=== PATIENT | female | born 1965 | race Caucasian/White ===

== ENCOUNTER → 2017-08-09 | Outpatient (CLI) | payer OTHER ==
[~2017-08-09] MED LIST: ALBU8.5H2 IH; ALPR0.5T72 PO; BSP10T PO; FLC100T1 PO; FLC150T PO; HYDR118S10 PO; IBP800T PO; LOVA40TA2 PO; LVT.05T PO; NEBI5TAB8 PO; OLME40TA14 PO; RABE20TA PO; SULF1TAB38 PO; TRAZ150T42 PO
--- NOTE | 2017-08-09 10:27 | Diagnostic Imaging Report ---
PROCEDURE: US left lower extremity venous. TECHNIQUE: Multiple real-time grayscale images were obtained over the left lower extremity in various projections. Additional duplex Doppler and color Doppler images were also obtained. INDICATION: Left lower extremity swelling and pain. There is no evidence of a left lower extremity DVT. Left lower extremity deep venous system demonstrates normal compressibility with normal response to augmentation and Valsalva. No fluid collections are identified. IMPRESSION: No evidence of left lower extremity DVT. Dictated by: Dictated on workstation # [id number]
--- NOTE | 2017-08-09 11:02 | Diagnostic Imaging Report ---
INDICATION: Fall. Pain. Swelling. Ecchymoses. COMPARISON: None. FINDINGS: 3 views of the left foot demonstrate no acute fracture or dislocation. There are no focal osseous lesions. There is mild generalized soft tissue swelling. Joint spaces are well maintained. No radiopaque foreign bodies are seen. IMPRESSION: Mild generalized soft tissue swelling, but no radiographic evidence of acute fracture or dislocation of the left foot. Dictated by: Dictated on workstation # [id number]
--- NOTE | 2017-08-09 11:03 | Diagnostic Imaging Report ---
INDICATION: Fall. Ecchymoses. Swelling. Pain. COMPARISON: None. FINDINGS: 3 views of the left ankle were obtained. There is no acute fracture or dislocation. No focal osseous lesions are seen. There is mild generalized soft tissue swelling. There are no radiopaque foreign bodies. IMPRESSION: 1. Mild generalized soft tissue swelling, but no radiographic evidence of acute fracture or dislocation in the left ankle. Dictated by: Dictated on workstation # [id number]
== END ==
LOC: RAD 09:22
PROVIDERS: ATTEND Nurse Practitioner Family
DX: S90.02XA Contusion of left ankle, initial encounter (principal); M79.89 Other specified soft tissue disorders; W19.XXXA Unspecified fall, initial encounter
CPT/HCPCS: 73610; 73630

== ENCOUNTER → 2018-04-28 | Outpatient (CLI) | payer OTHER ==
--- NOTE | 2018-04-28 16:03 | Diagnostic Imaging Report ---
INDICATION: Right shoulder pain. Time of exam 3:32 p.m. FINDINGS: Three views of the right shoulder demonstrate normal glenohumeral and acromioclavicular alignment. Acromiohumeral space is normal. No fracture or dislocation is seen. IMPRESSION: No acute abnormality is detected. Dictated by: Dictated on workstation # [id number]
== END ==
LOC: RAD 14:58
PROVIDERS: ATTEND Nurse Practitioner Family
DX: M25.511 Pain in right shoulder (principal)
CPT/HCPCS: 73030

== ENCOUNTER → 2018-05-12 | Outpatient (CLI) | payer OTHER ==
[~2018-05-12] VITALS: Ht 149.9 cm; Wt 89.8 kg
[~2018-05-12] MED LIST changes: +GADOBUTROL 7.5 MMOL/7.5 ML (GADAVIST) VIAL IV ONE; +IOHEXOL 240 MGI/ML 20 ML (OMNIPAQUE) VIAL IV ONE; +LIDOCAINE 1% INJ 20 ML 20 ML VIAL INJ ONE
--- NOTE | 2018-05-12 11:23 | Diagnostic Imaging Report ---
Indication: Right shoulder pain. Patient presents for a right shoulder injection for MRI. The patient was brought to the procedure room placed on the table in the supine position. The skin of the right shoulder was prepped and draped in the usual sterile fashion. Small amount of 1% lidocaine was utilized for local anesthesia. 21-gauge needle was advanced to the right shoulder at the rotator interval. A 15 mL solution of iodinated contrast, normal saline and gadolinium was injected under fluoroscopic observation. Needle was withdrawn and hemostasis was obtained. 25 seconds of fluoroscopic time was utilized. Patient was sent to MRI in satisfactory condition. Impression: Successful right shoulder injection of gadolinium contrast solution for MRI can be utilizing fluoroscopic guidance. Dictated by: Dictated on workstation # [id number]
--- NOTE | 2018-05-12 14:58 | Diagnostic Imaging Report ---
PATIENT HISTORY: PAIN IN RT SHOULDER. TECHNIQUE: Multiplanar multisequence MRI examination of the right shoulder was performed following intra-articular injection of a gadolinium based contrast mixture. COMPARISON: Radiographs from 04/28/2018. FINDINGS: No acute fracture is seen in the right shoulder. Alignment appears normal. There are moderate degenerative changes in the right acromioclavicular joint. The glenohumeral joint space is well distended with contrast, with contrast in the subacromial subdeltoid bursa and the AC joint space. There is a full-thickness tear of the right supraspinatus tendon and anterior infraspinatus tendon, with high-grade partial-thickness tearing extending posteriorly through the infraspinatus tendon. The full-thickness component measures at least 2 cm AP, with an additional 2 cm of high-grade partial-thickness tearing. There is partial tearing of the superior fibers of the subscapularis tendon as well, which appears to be intrasubstance. The teres minor tendon is intact. There does appear to be mild atrophy of the infraspinatus and teres minor musculature. No masses or fluid collections are seen in the quadrilateral space. The long head of the biceps tendon appears intact. There is complex tearing of the glenoid labrum extending from 10 o'clock posteriorly, through the superior labrum, to approximately 1 o'clock anteriorly. No large para-labral cysts are seen. The acromion has a curved undersurface without significant hooking. The coracoclavicular and coracoacromial ligaments are intact. There is edema anteriorly from recent injection. IMPRESSION: 1. Full-thickness and high-grade partial-thickness tears of the right supraspinatus and infraspinatus tendons. Intrasubstance low-grade partial tearing of the subscapularis tendon. 2. Mild atrophy of the infraspinatus and teres minor musculature. 3. Complex tearing of the superior glenoid labrum. Dictated by: Dictated on workstation # [id number]
== END ==
LOC: RAD 10:05
PROVIDERS: ATTEND Nurse Practitioner Family
DX: M75.121 Complete rotator cuff tear or rupture of right shoulder, not specified as traumatic (principal); M24.111 Other articular cartilage disorders, right shoulder
CPT/HCPCS: 23350; 73040; 73222

== ENCOUNTER → 2021-05-02 | Outpatient (CLI) | payer OTHER ==
[~2021-05-02] MED LIST changes: -GADOBUTROL 7.5 MMOL/7.5 ML (GADAVIST) VIAL IV ONE; -IOHEXOL 240 MGI/ML 20 ML (OMNIPAQUE) VIAL IV ONE; -LIDOCAINE 1% INJ 20 ML 20 ML VIAL INJ ONE
== END ==
LOC: WOUNDCARE 12:06
PROVIDERS: ATTEND Family Medicine
DX: L98.492 Non-pressure chronic ulcer of skin of other sites with fat layer exposed (principal); M72.6 Necrotizing fasciitis; T81.31XA Disruption of external operation (surgical) wound, not elsewhere classified, initial encounter; M62.81 Muscle weakness (generalized); E11.622 Type 2 diabetes mellitus with other skin ulcer; E11.65 Type 2 diabetes mellitus with hyperglycemia; T65.292A Toxic effect of other tobacco and nicotine, intentional self-harm, initial encounter
CPT/HCPCS: 11042; G0463

== ENCOUNTER → 2021-05-07 | Outpatient (CLI) | payer OTHER ==
[2021-05-07 11:28] LABS: BASOPHILS # (AUTO) 0.1 10^3/uL (0.0-0.1); BASOPHILS % (AUTO) 1 % (0-10); EOSINOPHILS # (AUTO) 0.3 10^3/uL (0.0-0.3); EOSINOPHILS % (AUTO) 4 % (0-10); HEMATOCRIT 34 % (35-52); HEMOGLOBIN 10.4 g/dL (11.5-16.0); LYMPHOCYTES # (AUTO) 2.4 10^3/uL (1.0-4.0); LYMPHOCYTES % (AUTO) 35 % (12-44); MEAN CORPUSCULAR HEMOGLOBIN 29 pg (25-34); MEAN CORPUSCULAR HGB CONC 30 g/dL (32-36); MEAN CORPUSCULAR VOLUME 96 fL (80-99); MEAN PLATELET VOLUME 10.2 fL (9.0-12.2); MONOCYTES # (AUTO) 0.5 10^3/uL (0.0-1.0); MONOCYTES % (AUTO) 8 % (0-12); NEUTROPHILS # (AUTO) 3.6 10^3/uL (1.8-7.8); NEUTROPHILS % (AUTO) 53 % (42-75); PLATELET COUNT 320 10^3/uL (130-400); WHITE BLOOD COUNT 6.9 10^3/uL (4.3-11.0)
[2021-05-07 11:49] LABS: ALBUMIN 4.1 GM/DL (3.2-4.5); BILIRUBIN,TOTAL 0.1 MG/DL (0.1-1.0); CALCIUM 9.7 MG/DL (8.5-10.1); CREATININE SERUM 1.28 MG/DL (0.60-1.30); POTASSIUM 4.8 MMOL/L (3.6-5.0); TOTAL PROTEIN 7.7 GM/DL (6.4-8.2)
== END ==
LOC: LAB 11:02
PROVIDERS: ATTEND Family Medicine
DX: E11.622 Type 2 diabetes mellitus with other skin ulcer (principal); E11.65 Type 2 diabetes mellitus with hyperglycemia; T65.292A Toxic effect of other tobacco and nicotine, intentional self-harm, initial encounter; M62.81 Muscle weakness (generalized); T81.31XA Disruption of external operation (surgical) wound, not elsewhere classified, initial encounter; M72.6 Necrotizing fasciitis; L98.492 Non-pressure chronic ulcer of skin of other sites with fat layer exposed
CPT/HCPCS: 36415; 80053; 83036; 85025

== ENCOUNTER → 2021-05-07 | Outpatient (CLI) | payer OTHER | LOC: WOUNDCARE 09:39 | PROVIDERS: ATTEND Family Medicine | DX: L98.492 Non-pressure chronic ulcer of skin of other sites with fat layer exposed (principal); M72.6 Necrotizing fasciitis; T81.31XA Disruption of external operation (surgical) wound, not elsewhere classified, initial encounter; M62.81 Muscle weakness (generalized); E11.622 Type 2 diabetes mellitus with other skin ulcer; E11.65 Type 2 diabetes mellitus with hyperglycemia; T65.292A Toxic effect of other tobacco and nicotine, intentional self-harm, initial encounter; E11.52 Type 2 diabetes mellitus with diabetic peripheral angiopathy with gangrene | CPT/HCPCS: 11042; G0463 ==

== ENCOUNTER → 2021-05-16 | Outpatient (CLI) | payer OTHER | LOC: WOUNDCARE 09:33 | PROVIDERS: ATTEND Family Medicine | DX: L98.492 Non-pressure chronic ulcer of skin of other sites with fat layer exposed (principal); M72.6 Necrotizing fasciitis; T81.31XA Disruption of external operation (surgical) wound, not elsewhere classified, initial encounter; M62.81 Muscle weakness (generalized); E11.622 Type 2 diabetes mellitus with other skin ulcer; E11.65 Type 2 diabetes mellitus with hyperglycemia; E11.52 Type 2 diabetes mellitus with diabetic peripheral angiopathy with gangrene; T65.291A Toxic effect of other tobacco and nicotine, accidental (unintentional), initial encounter | CPT/HCPCS: 11042; A6197; G0463 ==

== ENCOUNTER → 2021-05-23 | Outpatient (CLI) | payer OTHER | LOC: WOUNDCARE 09:26 | PROVIDERS: ATTEND Family Medicine | DX: L98.492 Non-pressure chronic ulcer of skin of other sites with fat layer exposed (principal); M72.6 Necrotizing fasciitis; T81.31XA Disruption of external operation (surgical) wound, not elsewhere classified, initial encounter; M62.81 Muscle weakness (generalized); E11.622 Type 2 diabetes mellitus with other skin ulcer; E11.65 Type 2 diabetes mellitus with hyperglycemia; T65.222A Toxic effect of tobacco cigarettes, intentional self-harm, initial encounter; E11.52 Type 2 diabetes mellitus with diabetic peripheral angiopathy with gangrene | CPT/HCPCS: 11042; G0463 ==

== ENCOUNTER → 2021-05-30 | Outpatient (CLI) | payer OTHER | LOC: WOUNDCARE 09:31 | PROVIDERS: ATTEND Family Medicine | DX: L98.492 Non-pressure chronic ulcer of skin of other sites with fat layer exposed (principal); M72.6 Necrotizing fasciitis; T81.31XA Disruption of external operation (surgical) wound, not elsewhere classified, initial encounter; E11.622 Type 2 diabetes mellitus with other skin ulcer; E11.65 Type 2 diabetes mellitus with hyperglycemia; T65.292A Toxic effect of other tobacco and nicotine, intentional self-harm, initial encounter; M62.81 Muscle weakness (generalized); E11.52 Type 2 diabetes mellitus with diabetic peripheral angiopathy with gangrene | CPT/HCPCS: 11042; G0463 ==

== ENCOUNTER → 2021-06-05 | Outpatient (CLI) | payer OTHER | LOC: WOUNDCARE 10:10 | PROVIDERS: ATTEND Family Medicine | DX: L98.492 Non-pressure chronic ulcer of skin of other sites with fat layer exposed (principal); M72.6 Necrotizing fasciitis; T81.31XA Disruption of external operation (surgical) wound, not elsewhere classified, initial encounter; M62.81 Muscle weakness (generalized); E11.622 Type 2 diabetes mellitus with other skin ulcer; E11.65 Type 2 diabetes mellitus with hyperglycemia; E11.52 Type 2 diabetes mellitus with diabetic peripheral angiopathy with gangrene; T65.222A Toxic effect of tobacco cigarettes, intentional self-harm, initial encounter | CPT/HCPCS: 11042; G0463 ==

== ENCOUNTER → 2021-06-12 | Outpatient (CLI) | payer OTHER | LOC: WOUNDCARE 10:03 | PROVIDERS: ATTEND Family Medicine | DX: L98.492 Non-pressure chronic ulcer of skin of other sites with fat layer exposed (principal); M72.6 Necrotizing fasciitis; T81.31XA Disruption of external operation (surgical) wound, not elsewhere classified, initial encounter; M62.81 Muscle weakness (generalized); E11.622 Type 2 diabetes mellitus with other skin ulcer; E11.65 Type 2 diabetes mellitus with hyperglycemia; T65.292A Toxic effect of other tobacco and nicotine, intentional self-harm, initial encounter; E11.52 Type 2 diabetes mellitus with diabetic peripheral angiopathy with gangrene | CPT/HCPCS: 11042; G0463 ==

== ENCOUNTER → 2021-06-20 | Outpatient (CLI) | payer OTHER | LOC: WOUNDCARE 09:25 | PROVIDERS: ATTEND Family Medicine | DX: E11.65 Type 2 diabetes mellitus with hyperglycemia (principal); M72.6 Necrotizing fasciitis; T65.292A Toxic effect of other tobacco and nicotine, intentional self-harm, initial encounter | CPT/HCPCS: 99212 ==

== ENCOUNTER → 2021-07-11 | Outpatient (CLI) | payer OTHER ==
[2021-07-11 12:00] LABS: CALCIUM 9.3 MG/DL (8.5-10.1); CREATININE SERUM 1.26 MG/DL (0.60-1.30)
== END ==
LOC: LAB 11:12
PROVIDERS: ATTEND Family Medicine
DX: L98.492 Non-pressure chronic ulcer of skin of other sites with fat layer exposed (principal); M72.6 Necrotizing fasciitis; T81.31XA Disruption of external operation (surgical) wound, not elsewhere classified, initial encounter; E11.622 Type 2 diabetes mellitus with other skin ulcer; E11.65 Type 2 diabetes mellitus with hyperglycemia; L02.215 Cutaneous abscess of perineum; T65.292A Toxic effect of other tobacco and nicotine, intentional self-harm, initial encounter
CPT/HCPCS: 36415; 80048

== ENCOUNTER → 2021-07-11 | Outpatient (CLI) | payer OTHER | LOC: WOUNDCARE 09:37 | PROVIDERS: ATTEND Family Medicine | DX: M72.6 Necrotizing fasciitis (principal); E11.65 Type 2 diabetes mellitus with hyperglycemia; E11.52 Type 2 diabetes mellitus with diabetic peripheral angiopathy with gangrene; T65.222A Toxic effect of tobacco cigarettes, intentional self-harm, initial encounter; L98.492 Non-pressure chronic ulcer of skin of other sites with fat layer exposed; T81.31XA Disruption of external operation (surgical) wound, not elsewhere classified, initial encounter; E11.622 Type 2 diabetes mellitus with other skin ulcer; L02.215 Cutaneous abscess of perineum | CPT/HCPCS: 11042; 87070; 87077; 87205; A6197; G0463; 87186 ==

== ENCOUNTER → 2021-07-22 | Outpatient (CLI) | payer OTHER ==
[~2021-07-22] MED LIST changes: +CATHETER FLUSH 10 ML SYR IV PRN; +HOLD METFORMIN - RECEIVED CONTRAST 20 ML VIAL IV SCH; +IOHEXOL 350 MG/ML 100 ML (OMNIPAQUE 350) VIAL IV ONE; +NS 100 ML (IVPB) BAG IV ONE
--- NOTE | 2021-07-22 11:49 | Diagnostic Imaging Report ---
PROCEDURE: CT pelvis with contrast. TECHNIQUE: Oral and intravenous contrast were administered with pelvic CT performed. Auto Exposure Controls were utilized during the CT exam to meet ALARA standards for radiation dose reduction. INDICATION: Necrotizing fasciitis. Follow-up surveillance. COMPARISON: None available. FINDINGS: There is architectural distortion within the subcutaneous fat and dermis in the left aspect of the perineum. This is likely due to scar tissue from previous debridement. No soft tissue gas is present. No rim-enhancing fluid collection that would indicate a drainable abscess. Visualized portions of colon are normal. The mesial rectal fat is without nodule or mass. No pelvic or inguinal lymphadenopathy. No osseous erosions or concerning focal osseous lesions. IMPRESSION: 1. There are likely surgical changes from soft tissue debridement in the left perineum. No soft tissue gas or abscess. Dictated by: Dictated on workstation # [id number]
== END ==
LOC: RAD 09:45
PROVIDERS: ATTEND Family Medicine
DX: M72.6 Necrotizing fasciitis (principal)
CPT/HCPCS: 72193

== ENCOUNTER → 2021-07-25 | Outpatient (CLI) | payer OTHER ==
[~2021-07-25] MED LIST changes: -CATHETER FLUSH 10 ML SYR IV PRN; -HOLD METFORMIN - RECEIVED CONTRAST 20 ML VIAL IV SCH; -IOHEXOL 350 MG/ML 100 ML (OMNIPAQUE 350) VIAL IV ONE; -NS 100 ML (IVPB) BAG IV ONE
== END ==
LOC: WOUNDCARE 09:38
PROVIDERS: ATTEND Family Medicine
DX: E11.622 Type 2 diabetes mellitus with other skin ulcer (principal); E11.65 Type 2 diabetes mellitus with hyperglycemia; L98.492 Non-pressure chronic ulcer of skin of other sites with fat layer exposed; T65.222A Toxic effect of tobacco cigarettes, intentional self-harm, initial encounter; T81.31XA Disruption of external operation (surgical) wound, not elsewhere classified, initial encounter; M72.6 Necrotizing fasciitis
CPT/HCPCS: 17250; G0463

== ENCOUNTER → 2021-08-15 | Outpatient (CLI) | payer OTHER | LOC: WOUNDCARE 09:42 | PROVIDERS: ATTEND Family Medicine | DX: L98.492 Non-pressure chronic ulcer of skin of other sites with fat layer exposed (principal); M72.6 Necrotizing fasciitis; T81.31XA Disruption of external operation (surgical) wound, not elsewhere classified, initial encounter; E11.622 Type 2 diabetes mellitus with other skin ulcer; E11.65 Type 2 diabetes mellitus with hyperglycemia; T65.222A Toxic effect of tobacco cigarettes, intentional self-harm, initial encounter; E11.52 Type 2 diabetes mellitus with diabetic peripheral angiopathy with gangrene | CPT/HCPCS: 99213 ==

== ENCOUNTER → 2021-08-29 | Outpatient (CLI) | payer OTHER | LOC: WOUNDCARE 09:52 | PROVIDERS: ATTEND Family Medicine | DX: L98.492 Non-pressure chronic ulcer of skin of other sites with fat layer exposed (principal); M72.6 Necrotizing fasciitis; T81.31XA Disruption of external operation (surgical) wound, not elsewhere classified, initial encounter; E11.622 Type 2 diabetes mellitus with other skin ulcer; E11.65 Type 2 diabetes mellitus with hyperglycemia; T65.292A Toxic effect of other tobacco and nicotine, intentional self-harm, initial encounter | CPT/HCPCS: 17250; G0463 ==

== ENCOUNTER → 2021-09-05 | Outpatient (CLI) | payer OTHER | LOC: WOUNDCARE 09:48 | PROVIDERS: ATTEND Family Medicine | DX: L98.492 Non-pressure chronic ulcer of skin of other sites with fat layer exposed (principal); M72.6 Necrotizing fasciitis; T81.31XA Disruption of external operation (surgical) wound, not elsewhere classified, initial encounter; E11.622 Type 2 diabetes mellitus with other skin ulcer; E11.65 Type 2 diabetes mellitus with hyperglycemia; T65.292A Toxic effect of other tobacco and nicotine, intentional self-harm, initial encounter | CPT/HCPCS: 17250; G0463 ==

== ENCOUNTER → 2021-09-12 | Outpatient (CLI) | payer OTHER | LOC: WOUNDCARE 09:43 | PROVIDERS: ATTEND Family Medicine | DX: L98.492 Non-pressure chronic ulcer of skin of other sites with fat layer exposed (principal); M72.6 Necrotizing fasciitis; T81.31XA Disruption of external operation (surgical) wound, not elsewhere classified, initial encounter; E11.622 Type 2 diabetes mellitus with other skin ulcer; E11.65 Type 2 diabetes mellitus with hyperglycemia; E11.52 Type 2 diabetes mellitus with diabetic peripheral angiopathy with gangrene; T65.292A Toxic effect of other tobacco and nicotine, intentional self-harm, initial encounter; L02.412 Cutaneous abscess of left axilla; L02.411 Cutaneous abscess of right axilla; L92.8 Other granulomatous disorders of the skin and subcutaneous tissue | CPT/HCPCS: 10061; 87070; 87077; 87205; A6197; A6266; G0463; 87186 ==